=== PATIENT | male | born 1955 | race African-American/Black ===

== ENCOUNTER 2017-06-13 18:29 | Inpatient (IN) | payer MEDICAID, OTHER ==
[~2017-06-13] VITALS: Ht 180.3 cm; Wt 83.9 kg
[2017-06-13 19:34] LABS: BASOPHILS % 0.6 % (0.0-2.0); EOSINOPHILS % 2.9 % (0.0-5.0); HEMOGLOBIN. 13.2 g/dL (14.0-18.0); LYMPHOCYTES % 24.6 % (20.0-50.0); MEAN CORPUSCULAR HEMOGLOBIN 29.8 pg (28.0-32.0); MEAN CORPUSCULAR VOLUME 88.3 fL (80.0-94.0); MEAN PLATELET VOLUME 10.8 fl (7.4-10.4); MONOCYTES % 10.9 % (2.0-8.0); PLATELET 84 x1000/uL (130-400); RED BLOOD CELL COUNT 4.41 mill/uL (4.7-6.1); RED CELL DISTRIBUTION WIDTH 13.9 % (11.6-14.6)
[2017-06-13 19:39] LABS: CARBON DIOXIDE 21 mEq/L (21-32); CHLORIDE 109 mEq/L (98-107); TROPONIN I < 0.02 ng/mL (0.00-0.04)
[2017-06-13 19:47] LABS: PROTHROMBIN TIME 10.8 sec (9.4-11.6)
[2017-06-13] MEDS ORDERED: MAGNESIUM/ALUMINUM HYDROXIDE/SIMETHICONE 30ML UDC PO PRN (23:45)
[2017-06-13] MEDS ORDERED: HYDROCODONE/ACETAMINOPHEN 5/325MG TABLET PO PRN (23:45)
[2017-06-13] MEDS ORDERED: CLONIDINE 0.1MG TABLET PO PRN (23:45)
[2017-06-13] MEDS ORDERED: ONDANSETRON HCL 4MG/2ML VIAL IV PRN (23:45)
[2017-06-13] MEDS ORDERED: ACETAMINOPHEN 325MG TABLET PO PRN (23:45)
[2017-06-13] MEDS ORDERED: IPRATROPIUM/ALBUTEROL 0.5-3(2.5)MG/3ML NEB INH PRN (23:45)
[2017-06-14] MEDS ORDERED: LIP40 PO (00:33)
[2017-06-14] MEDS ORDERED: DOCU-267 PO (00:33)
[2017-06-14] MEDS ORDERED: HYDR-519 PO (00:33)
[2017-06-14] MEDS ORDERED: LOSA25TA12 PO (00:33)
[2017-06-14] MEDS ORDERED: HYDR-2412 PO (00:33)
[2017-06-14] MEDS ORDERED: CLOP75TA16 PO (00:33)
[2017-06-14] MEDS ORDERED: ALBU18HF2 IH (00:33)
[2017-06-14] MEDS ORDERED: NITR0.4T SL (00:33)
[2017-06-14] MEDS ORDERED: LORA10TA7 PO (00:33)
[2017-06-14] MEDS ORDERED: CILO100T PO (00:33)
[2017-06-14] MEDS ORDERED: XALAO EACHEYE (00:33)
[2017-06-14] MEDS ORDERED: BECL8.7A6 INH (00:33)
[2017-06-14] MEDS ORDERED: COR3 PO (00:33)
[2017-06-14] MEDS ORDERED: ZOLP10TA6 PO (00:33)
[2017-06-14] MEDS ORDERED: ASPI-1159 PO (00:33)
[2017-06-14] MEDS ORDERED: FURO20TA4 PO (00:33)
[2017-06-14] MEDS ORDERED: NITROGLYCERIN 0.4MG TABLET SL SL PRN (00:45)
[2017-06-14] MEDS ORDERED: HYDROXYZINE 25MG TABLET PO PRN (00:45)
[2017-06-14 01:00] VITALS: BP 118/86
[2017-06-14 01:10] LABS: CHLORIDE 107 mEq/L (98-107)
[2017-06-14 01:16] LABS: CARBON DIOXIDE 24 mEq/L (21-32)
[2017-06-14] MEDS ORDERED: ZOLPIDEM TARTRATE 5MG TABLET PO SCH (01:28)
[2017-06-14 01:34] VITALS: BP 118/86
[2017-06-14] MEDS: LOSARTAN POTASSIUM 25 MG TABLET PO SCH ×2 (01:38→08:50)
[2017-06-14 04:00] VITALS: BP 130/73
[2017-06-14 07:39] LABS: CREATINE KINASE MB FRACTION 1.3 ng/mL (0.5-3.6); TROPONIN I 0.02 ng/mL (0.00-0.04)
[2017-06-14 08:00] VITALS: BP 110/79
[2017-06-14] MEDS ORDERED: FUROSEMIDE 40MG/4ML VIAL IV SCH (09:00)
[2017-06-14] MEDS ORDERED: BECLOMETHASONE DIPROPIONATE INH SCH (09:00)
[2017-06-14] MEDS ORDERED: LORATADINE 10MG TABLET PO SCH (09:00)
[2017-06-14] MEDS ORDERED: ENOXAPARIN 40MG/0.4ML SYR SUBCUT SCH ×2 (09:00)
[2017-06-14] MEDS ORDERED: CARVEDILOL 3.125 MG TABLET PO SCH (09:00)
[2017-06-14] MEDS ORDERED: ASPIRIN 81MG EC TABLET PO SCH (09:00)
[2017-06-14] MEDS ORDERED: BUDESONIDE 0.5MG/2ML NEB HHN SCH (09:00)
[2017-06-14] MEDS ORDERED: CLOPIDOGREL 75MG TABLET PO SCH (09:00)
[2017-06-14] MEDS ORDERED: CILOSTAZOL 100MG TABLET PO SCH (09:00)
[2017-06-14] MEDS ORDERED: POTASSIUM CHLORIDE 20MEQ TABLET SR PO NR (10:08)
[2017-06-14 12:00] VITALS: BP 111/75
[2017-06-14 12:03] LABS: *AMPHETAMINES SCREEN URINE NEGATIVE (NEGATIVE); *BARBITURATES SCREEN URINE NEGATIVE (NEGATIVE); *BENZODIAZEPINES SCREEN URINE NEGATIVE (NEGATIVE); *COCAINE SCREEN URINE NEGATIVE (NEGATIVE); CANNABINOID URINE SCREEN PRESUMTIVE POSITIVE (NEGATIVE); METHADONE URINE SCREEN NEGATIVE (NEGATIVE); OPIATES URINE SCREEN PRESUMTIVE POSITIVE (NEGATIVE); PHENCYCLIDINE URINE SCREEN NEGATIVE (NEGATIVE)
[2017-06-14] MEDS ORDERED: ATORVASTATIN CALCIUM 40MG TABLET PO SCH (17:00)
[2017-06-14] MEDS ORDERED: LATANOPROST 0.005% OPHTH DROPS 2.5ML EACHEYE SCH (17:00)
[2017-06-14] MEDS ORDERED: MEDICATION NOT ON FORMULARY EA (Zolpidem Tartrate 1 TAB) PO SCH (17:00)
[2017-06-14] MEDS ORDERED: DOCUSATE SODIUM 100MG CAPSULE PO SCH (21:00)
== END 2017-06-14 13:55 | disposition left against medical advice (07) | DRG 198 ==
LOC: ER 19:32 → 6WST 20:02 → EDBEDREQTM 20:07 → EDBEDREQ 20:07 → ENRESERV 21:14
PROVIDERS: ADMIT Internal Medicine; ATTEND Internal Medicine
DX: I25.119 Atherosclerotic heart disease of native coronary artery with unspecified angina pectoris (principal); I24.9 Acute ischemic heart disease, unspecified; I11.0 Hypertensive heart disease with heart failure; I42.9 Cardiomyopathy, unspecified; I50.9 Heart failure, unspecified; Z53.21 Procedure and treatment not carried out due to patient leaving prior to being seen by health care provider; I73.9 Peripheral vascular disease, unspecified; J44.9 Chronic obstructive pulmonary disease, unspecified; Z82.49 Family history of ischemic heart disease and other diseases of the circulatory system; Z87.891 Personal history of nicotine dependence; Z91.19 Patient's noncompliance with other medical treatment and regimen; Z95.1 Presence of aortocoronary bypass graft; I25.2 Old myocardial infarction; E87.6 Hypokalemia; F12.90 Cannabis use, unspecified, uncomplicated
CPT/HCPCS: 36415; 71010; 73620; 80048; 80053; 80061; 80305; 82550; 82553; 83735; 83880; 84443; 84484; 85025; 85610; 93005; 94664; 99285; J1940; J7620; J7626

== ENCOUNTER 2018-09-20 02:40 | Emergency (ER) | payer MEDICAID, OTHER ==
[~2018-09-20] VITALS: Ht 177.8 cm; Wt 80.0 kg
[~2018-09-20 02:40] MED LIST: ALBU18HF2 IH; ASPI-1159 PO; BECL8.7A6 INH; CILO100T PO; CLOP75TA16 PO; COR3 PO; DOCU-267 PO; FURO20TA4 PO; HYDR-459 PO; HYDR-519 PO; LIP40 PO; LORA10TA7 PO; LOSA25TA12 PO; NITR0.4T SL; XALAO EACHEYE; ZOLP10TA6 PO
[2018-09-20] MEDS ORDERED: SODIUM CHLORIDE 0.9% 1,000 ML IV ONE (03:29)
[2018-09-20] MEDS ORDERED: MORPHINE SULFATE 4 MG/ML CPJ (NOT FOR IM USE) IV STA (03:29)
[2018-09-20] MEDS ORDERED: ONDANSETRON HCL 4MG/2ML INJ IV STA (03:29)
[2018-09-20] MEDS ORDERED: MORPHINE SULFATE 2 MG/ML CPJ (NOT FOR IM USE) IV SCH (03:44)
[2018-09-20] MEDS ORDERED: IPRATROPIUM BROMIDE (0.02%) 0.5MG/2.5ML NEB HHN STA (03:45)
[2018-09-20] MEDS ORDERED: ALBUTEROL (0.083%) 2.5MG/3ML NEB HHN STA (03:45)
[2018-09-20] MEDS ORDERED: DIATR MEGLU/DIATRIZOATE SOLN 30ML ONE (03:53)
[2018-09-20 04:11] LABS: BASOPHILS % 0.4 % (0.0-2.0); EOSINOPHILS % 1.4 % (0.0-5.0); HEMOGLOBIN. 11.2 g/dL (14.0-18.0); LYMPHOCYTES % 29.1 % (20.0-50.0); MEAN CORPUSCULAR HEMOGLOBIN 33.8 pg (28.0-32.0); MEAN CORPUSCULAR VOLUME 102.7 fL (80.0-94.0); MEAN PLATELET VOLUME 11.6 fl (7.4-10.4); MONOCYTES % 9.6 % (2.0-8.0); NEUTROPHILS % 59.5 % (40.0-76.0); PLATELET 85 x1000/uL (130-400); RED BLOOD CELL COUNT 3.31 mill/uL (4.7-6.1); RED CELL DISTRIBUTION WIDTH 15.1 % (11.6-14.6)
[2018-09-20 04:19] LABS: CHLORIDE 106 mEq/L (98-107)
[2018-09-20] MEDS ORDERED: KETOROLAC 30MG/ML VIAL IV ONE (07:30)
[2018-09-20] MEDS ORDERED: IOHEXOL-300 100 ML BOTTLE ONE (07:32)
[2018-09-20 08:49] VITALS: BP 124/85
== END 2018-09-20 08:50 | disposition home or self-care (01) ==
LOC: ER 02:40
DX: K43.9 Ventral hernia without obstruction or gangrene (principal); D64.9 Anemia, unspecified; I25.2 Old myocardial infarction; I11.0 Hypertensive heart disease with heart failure; I50.9 Heart failure, unspecified; F17.200 Nicotine dependence, unspecified, uncomplicated; J44.9 Chronic obstructive pulmonary disease, unspecified; Z95.1 Presence of aortocoronary bypass graft
CPT/HCPCS: 36415; 74177; 76705; 80053; 83605; 83690; 85025; 96361; 96374; 96375; 99284; J1885; J2270; J2405; J7030; Q9967; J7611; Q9963